=== PATIENT | female | born 1960 | race African-American/Black ===

== ENCOUNTER → 2017-02-26 | Day surgery (SDC) | payer OTHER ==
[~2017-02-26] MED LIST: AMLODIPINE BESYL5 MG PO; COMBIGAN EYE DRO5 ML OD; ESTRADIOL1 MG PO; HM COMPLETE WO1 EACH PO; HYDROCODON-ACE1 EAC7 PO; LATANOPROST2.5 ML OU; LOSARTAN-HCTZ1 EAC1 PO; LOSARTAN-HCTZ1 EAC2 PO; LOVASTATIN10 MG PO; MULTI VITAMIN1 EACH PO; ONE DAILY FOR1 EAC1 PO; PRAVASTATIN SOD40 MG PO; PRAVASTATIN SOD80 MG PO; PROTONIX PO
--- NOTE | ~2017-02-26 | OR ---
Unit #: [id number] #: [id number] Patient: ISAURO RICHARDSON [id number] [address] [address] [id number] O MR#: [id number] NAME: ISAURO RICHARDSON ROOM: Date of Procedure: 02/26/2017 Admission Date: 02/26/2017 Surgeon: Yoel Denise M.D. : 1960 Attending Physician: Yoel Denise M.D. Primary Care Physician: Cesar Barros M.D. 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 POSTOPERATIVE DIAGNOSIS The patient status post replacement of implantable pulse generator. ANESTHESIA General. PREOPERATIVE ANTIBIOTICS Ancef protocol. ESTIMATED BLOOD LOSS Zero. DESCRIPTION OF PROCEDURE The patient was placed in general anesthetic then in a right lateral decubitus position by the OR staff. The patient was sterilely prepped and draped. The skin overlying the IPG pocket was localized with 0.5% Marcaine with epinephrine. Sharp and then Bovie dissection was then used to dissect down to the IPG pocket. IPG was explanted. The pocket was clean and intact. No evidence of infection. The pocket size was extended caudally to be able to accommodate the new rechargeable IPG. The IPG pocket was then copiously irrigated with irrigant. The new stimulator was placed and impedances were checked. The subcutaneous tissues were closed in two layers with 2-0 Vicryl. The skin was closed with alison. Sterile dressing was applied. The patient tolerated the procedure well and was discharged to the recovery room in stable condition. The IPG placed was model 71303, serial #[id number]. Dictated by... Yoel Denise M.D. KAITLINP/leticia TD: 02/27/2017 03:50 JOB #: [id number] Unit #: [id number] #: [id number] Patient: ISAURO RICHARDSON OPERATIVE REPORT Page 1 of 1 X Yoel Denise MD X PROCEDURE OPERATIVE NOTE
--- NOTE | ~2017-02-26 | EKG ---
PATIENT: ISAURO RICHARDSON UNIT #: [id number] Ventricular Rate: 79 BPM Atrial Rate: 79 BPM P-R Interval: 180 ms QRS Duration: 72 ms Q-T Interval: 386 ms QTC Calculation(Bezet): 442 ms P [place]: 24 degrees Calculated R [place]: -12 degrees Calculated T [place]: 10 degrees Diagnosis Line: Normal sinus rhythm Diagnosis Line: Minimal voltage criteria for LVH, may be normal Diagnosis Line: variant Diagnosis Line: Borderline ECG Diagnosis Line: When compared with ECG of 11-SEP-2016 07:36, Diagnosis Line: No significant change was found Diagnosis Line: Confirmed by LATOYA SINGH MD ([id number]) on Diagnosis Line: 02/26/2017 10:43:30 PM INTERPRETING MD: AMAN
[2017-02-26 07:10] LABS: BUN/CREATININE RATIO 22.22; CALCIUM SERUM 9.5 mg/dL (8.4-10.2); CREATININE SERUM 0.9 mg/dL (0.6-1.4); GLOM FILT RATE Estimated 82.9 mL/min (>60); POTASSIUM 3.2 mmol/L (3.5-5.1)
== END | disposition home or self-care (01) ==
LOC: CSUR 05:56
PROVIDERS: Pain Medicine Pain Medicine
DX: Z45.49 Encounter for adjustment and management of other implanted nervous system device (principal); K21.9 Gastro-esophageal reflux disease without esophagitis; I10 Essential (primary) hypertension; Z90.710 Acquired absence of both cervix and uterus; Z98.890 Other specified postprocedural states; Z90.49 Acquired absence of other specified parts of digestive tract; Z79.899 Other long term (current) drug therapy
CPT/HCPCS: 80048; 93005; J0690; J2250; J2405; J3010